=== PATIENT | male | born 1995 | race Caucasian/White ===

== ENCOUNTER 2017-02-17 18:54 | Emergency (ER) | payer OTHER ==
[~2017-02-17] VITALS: Ht 193 cm; Wt 90.7 kg
[~2017-02-17 18:54] MED LIST: TUSSI PRES-B L120 M1 PO; ZITHROMAX TRI-500 MG PO
[2017-02-17] MEDS ORDERED: CIPRO500 MG PO (22:04)
== END 2017-02-17 22:19 | disposition home or self-care (01) ==
LOC: ER 18:54
DX: L60.0 Ingrowing nail (principal)